=== PATIENT | male | born 1970 | race Caucasian/White ===

== ENCOUNTER → 2016-11-19 | Outpatient (CLI) | payer BC ==
--- NOTE | 2016-11-19 13:53 | DI ---
Indication: ITS.REASON: N20.0 KIDNEY STONE LEFT SIDE PROCEDURE: CT RENAL W/O CONTRAST: Encounter: Initial Comparison: None Technique: Axial CT images were performed through the abdomen and pelvis without intravenous contrast. Coronal and sagittal two-dimensional reformats. Automated Exposure Control and Iterative Reconstruction dose reducing techniques were utilized. Findings: The lung bases are clear. The unenhanced contours of the liver, gallbladder, spleen, pancreas and adrenal glands are within normal limits. 5 mm stone in the interpolar left kidney. Additional 2 mm lower pole stone on the left. Right kidney shows mild hydronephrosis with a 2 mm lower pole stone and some tiny areas of stone debris. There is an obstructing 7 x 3 x 3 mm stone in the right proximal ureter just below the ureteropelvic junction at the L2 level. No additional ureteral stones. No abdominal or pelvic lymphadenopathy. Bladder is normal. Prostate and rectum are unremarkable. No free fluid. No evidence of a bowel obstruction. The appendix is normal. Bone windows show a sclerotic probable bone islands in the right femoral head. Impression: Obstructing 7 mm right proximal ureteral stone. Bilateral nephrolithiasis. .
== END ==
LOC: IMA 13:20
PROVIDERS: ATTEND Specialist
DX: N13.2 Hydronephrosis with renal and ureteral calculous obstruction (principal)